=== PATIENT | male | born 1940 | race Caucasian/White ===

== ENCOUNTER 2017-09-25 10:20 | Emergency (ER) | payer OTHER ==
[~2017-09-25 10:20] MED LIST: ALLO300T2 PO; ATOR40TA69 PO; CARV6.2579 PO; FURO40TA7 PO; ISOS20TA7 PO; LISI10TA7 PO; PANT40TA25 PO; POTA10TA11 PO; TAMS-1 PO
[2017-09-25] MEDS ORDERED: ACETAMINOPHEN 325 MG TAB ONE (10:52)
[2017-09-25 11:14] LABS: BASOPHILS % (AUTO) 0.9 % (0.0-5.0); EOSINOPHILS % (AUTO) 0.1 % (0.0-8.0); HEMATOCRIT 44.7 % (42-54); MEAN CORPUSCULAR HEMOGLOBIN 32.7 pg (27.0-33.0); MEAN CORPUSCULAR HGB CONC 33.9 g/dL (32.0-36.0); MEAN CORPUSCULAR VOLUME 96.3 fL (79-99); PLATELET COUNT (AUTO) 144 K/uL (130-400); RED BLOOD CELL COUNT(AUTO) 4.64 MIL/uL (4.50-6.20); RED CELL DISTRIBUTION WIDTH 14.8 % (11.0-15.5); WHITE BLOOD COUNT (AUTO) 8.6 K/uL (4.8-10.8)
[2017-09-25 11:24] LABS: CREATININE 1.5 mg/dL (0.5-1.5)
[2017-09-25 11:25] LABS: POTASSIUM 2.9 mmol/L (3.5-5.1)
[2017-09-25 11:41] LABS: APPEARANCE,URINE Clear (CLEAR); BILIRUBIN,URINE Negative (NEGATIVE); COLOR,URINE Yellow (YELLOW); GLUCOSE, URINE (UA) Negative (NEGATIVE); KETONES,URINE Negative (NEGATIVE); LEUKOCYTE ESTERASE ,URINE Negative (NEGATIVE); NITRATE,URINE Negative (NEGATIVE); OCCULT BLOOD,URINE Negative (NEGATIVE); PROTEIN,URINE Negative (NEGATIVE)
[2017-09-25 11:52] LABS: B-TYPE NATRIURETIC PEPTIDE 254 pg/mL (0-100)
[2017-09-25] MEDS ORDERED: IPRATROPIUM/ALBUTEROL SULFATE 3 ML SOLUTION IH ONE (11:52)
[2017-09-25] MEDS ORDERED: POTASSIUM BICARB/CIT AC 25 MEQ TABLET.EFF ONE (12:10)
== END 2017-09-25 13:36 | disposition home or self-care (01) ==
LOC: EDH 10:20
DX: J09.X2 Influenza due to identified novel influenza A virus with other respiratory manifestations (principal); M54.5 Low back pain; I11.0 Hypertensive heart disease with heart failure; I50.9 Heart failure, unspecified; E78.5 Hyperlipidemia, unspecified
CPT/HCPCS: 36415; 71045; 80048; 81003; 83605; 83880; 84484; 85025; 93005; 94640

== ENCOUNTER 2019-09-30 13:57 | Emergency (ER) | payer MEDICARE, OTHER ==
[2019-09-30] MEDS ORDERED: ACETAMINOPHEN EXTRA STRENGTH 500 MG TABLET ONE (14:53)
== END 2019-09-30 16:28 | disposition home or self-care (01) ==
LOC: EDH 13:57
DX: S83.91XA Sprain of unspecified site of right knee, initial encounter (principal); S40.021A Contusion of right upper arm, initial encounter; I50.9 Heart failure, unspecified; E78.5 Hyperlipidemia, unspecified; I10 Essential (primary) hypertension; Z98.890 Other specified postprocedural states; Z87.891 Personal history of nicotine dependence; W18.39XA Other fall on same level, initial encounter; Y93.89 Activity, other specified; Y92.89 Other specified places as the place of occurrence of the external cause; Y99.8 Other external cause status
CPT/HCPCS: 73562

== ENCOUNTER → 2022-04-19 | Outpatient (CLI) | payer MEDICARE ==
[~2022-04-19] VITALS: Ht 160 cm; Wt 112.1 kg
[~2022-04-19] MED LIST changes: +ALLOPURINOL PO; +ASPI-1443 PO; +BUPIVACAINE/PF 0.5% 30ML VIAL INJ ONE; +CEFAZOLIN SODIUM 1 GM VIAL IVP ONE; -ISOS20TA7 PO; +ISOS20TA85 PO; +ISOSORBIDE PO; +LEVO5TAB13 PO; +LISI10TA24 PO; -LISI10TA7 PO; +LISI2.5T13 PO; +METO5TAB7 PO; +MONT-39 PO; -PANT40TA25 PO; +PANT40TA55 PO; +POTA-183 PO; +POTA-79 PO; -POTA10TA11 PO; +WARF4TAB72 PO
[2022-04-19 14:58] LABS: BASOPHILS % (AUTO) 0.7 % (0.0-5.0); EOSINOPHILS % (AUTO) 1.9 % (0.0-8.0); HEMATOCRIT 45.7 % (42-54); LYMPHOCYTES % (AUTO) 30.5 % (21.0-51.0); MEAN CORPUSCULAR HEMOGLOBIN 32.3 pg (27.0-33.0); MEAN CORPUSCULAR HGB CONC 33.3 g/dL (32.0-36.0); MONOCYTES % (AUTO) 9.5 % (3.0-13.0); PLATELET COUNT (AUTO) 196 K/uL (130-400); RED BLOOD CELL COUNT(AUTO) 4.71 MIL/uL (4.50-6.20); RED CELL DISTRIBUTION WIDTH 13.2 % (11.0-15.5); WHITE BLOOD COUNT (AUTO) 6.9 K/uL (4.8-10.8)
[2022-04-19 15:04] VITALS: BP 148/72
[2022-04-19 15:07] LABS: CREATININE 1.3 mg/dL (0.5-1.5); POTASSIUM 3.5 mmol/L (3.5-5.1)
[2022-04-19 15:10] LABS: INR 1.62 (0.85-1.15); PROTHROMBIN TIME 17.2 SEC (9.6-11.6)
[2022-04-19 15:11] LABS: PARTIAL THROMBOPLASTIN TIME 34.6 SEC (26.3-35.5)
[2022-04-22 06:56] LABS: INR 1.15 (0.85-1.15); PROTHROMBIN TIME 12.4 SEC (9.6-11.6)
[2022-04-22 06:58] LABS: PARTIAL THROMBOPLASTIN TIME 28.5 SEC (26.3-35.5)
== END | disposition home or self-care (01) ==
LOC: DAH 10:00 → EDSTATUS 14:00
PROVIDERS: ATTEND Surgery
DX: Z01.812 Encounter for preprocedural laboratory examination (principal); K80.13 Calculus of gallbladder with acute and chronic cholecystitis with obstruction; Z79.01 Long term (current) use of anticoagulants; Z20.822 Contact with and (suspected) exposure to COVID-19
CPT/HCPCS: 36415; 80048; 85025; 85610; 85730; 87426; 93005

== ENCOUNTER 2022-04-21 23:56 | Observation (INO) | payer MEDICARE ==
[~2022-04-21] VITALS: Ht 160 cm; Wt 117.0 kg
[~2022-04-21 23:56] MED LIST changes: -ALLO300T2 PO; -BUPIVACAINE/PF 0.5% 30ML VIAL INJ ONE; -CEFAZOLIN SODIUM 1 GM VIAL IVP ONE; -ISOS20TA85 PO; -LISI10TA24 PO; -PANT40TA55 PO; -POTA-183 PO
[2022-04-22] VITALS (25 sets, daily range): BP systolic 99–135; BP diastolic 50–79
[2022-04-22 00:41] LABS: BASOPHILS % (AUTO) 0.5 % (0.0-5.0); EOSINOPHILS % (AUTO) 1.3 % (0.0-8.0); MEAN CORPUSCULAR HEMOGLOBIN 32.6 pg (27.0-33.0); MEAN CORPUSCULAR HGB CONC 33.7 g/dL (32.0-36.0); MEAN CORPUSCULAR VOLUME 96.6 fL (79-99); MONOCYTES % (AUTO) 7.7 % (3.0-13.0); NEUTROPHILS % (AUTO) 67.5 % (40.0-77.0); PLATELET COUNT (AUTO) 205 K/uL (130-400); RED BLOOD CELL COUNT(AUTO) 4.45 MIL/uL (4.50-6.20); RED CELL DISTRIBUTION WIDTH 13.2 % (11.0-15.5); WHITE BLOOD COUNT (AUTO) 9.1 K/uL (4.8-10.8)
[2022-04-22 00:43] LABS: APPEARANCE,URINE CLEAR (CLEAR); BILIRUBIN,URINE NEGATIVE (NEGATIVE); COLOR,URINE YELLOW (YELLOW); GLUCOSE, URINE (UA) NEGATIVE (NEGATIVE); KETONES,URINE 5 mg/dL (NEGATIVE); LEUKOCYTE ESTERASE ,URINE TRACE (NEGATIVE); NITRATE,URINE NEGATIVE (NEGATIVE); OCCULT BLOOD,URINE TRACE-INTACT (NEGATIVE); PH,URINE 5.5 (5.0-8.0); PROTEIN,URINE NEGATIVE (NEGATIVE); UROBILINOGEN,URINE 0.2 mg/dL (0.2-1.0)
[2022-04-22 00:52] LABS: BACTERIA,URINE Rare /HPF (None Seen); MUCUS,URINE Rare LPF (None Seen); SQUAMOUS EPITHELIAL CELL,UR Rare /HPF (0-2)
[2022-04-22 00:55] LABS: CREATININE 1.4 mg/dL (0.5-1.5); POTASSIUM 3.1 mmol/L (3.5-5.1)
[2022-04-22 00:59] LABS: ALBUMIN 3.4 g/dL (3.5-5.0); TOTAL PROTEIN, SERUM 7.1 g/dL (6.0-8.3)
[2022-04-22 01:17] LABS: INR 1.09 (0.85-1.15); PROTHROMBIN TIME 11.8 SEC (9.6-11.6)
[2022-04-22 01:18] LABS: PARTIAL THROMBOPLASTIN TIME 30.5 SEC (26.3-35.5)
[2022-04-22] MEDS ORDERED: 0.9%NACL 1000ML 1,000 ML IV ONE (01:30)
[2022-04-22] MEDS ORDERED: KETOROLAC 15MG/ML VIAL (15MG/ML) IV ONE (01:30)
[2022-04-22] MEDS ORDERED: ONDANSETRON 4MG INJ IVP ONE (01:30)
[2022-04-22] MEDS ORDERED: MORPHINE 4 MG SYG IVP ONE (01:30)
[2022-04-22] MEDS ORDERED: ZOSYN 3.375GM +NS 50ML IV SCH (01:30)
[2022-04-22] MEDS ORDERED: LIDOCAINE HCL-MPF 1% 2ML VIAL IV PRN (02:00)
[2022-04-22] MEDS ORDERED: POTASSIUM CHLORIDE 20MEQ/100ML 100 ML IV PRN (02:00)
[2022-04-22] MEDS ORDERED: MORPHINE 2 MG SYG IV PRN (02:00)
[2022-04-22] MEDS ORDERED: MORPHINE 4 MG SYG IV PRN (02:00)
[2022-04-22] MEDS ORDERED: HYDRALAZINE 20MG/ML VIAL IV PRN (02:00)
[2022-04-22] MEDS ORDERED: ONDANSETRON 4MG INJ IV PRN (02:00)
[2022-04-22] MEDS ORDERED: KETOROLAC 15MG/ML VIAL (15MG/ML) IM PRN (02:30)
[2022-04-22] MEDS: 0.9%NACL 1000ML 1,000 ML IV SCH ×3 (02:53→22:00)
[2022-04-22] MEDS: ZOSYN 3.375GM+NS 50ML 50 ML IV SCH ×3 (05:14→20:34)
[2022-04-22] MEDS: INSULIN HUMULIN R 100 UNIT/ML 3ML SQ SCH ×4 (05:39→20:41)
[2022-04-22] MEDS ORDERED: PROPOFOL 10 MG/ML 20ML VIAL IV ONE (06:52)
[2022-04-22] MEDS ORDERED: DEXAMETHASONE SOD PHOSPHATE 10MG/ML 1ML VIAL ONE (06:52)
[2022-04-22] MEDS ORDERED: SUCCINYLCHOLINE CHLORIDE 20 MG/ML 10 ML VIAL ONE (06:52)
[2022-04-22] MEDS ORDERED: LIDOCAINE PF 100MG/5ML (2%) SYRINGE 5ML ONE (06:52)
[2022-04-22] MEDS ORDERED: ONDANSETRON 4MG INJ ONE (06:53)
[2022-04-22] MEDS ORDERED: MIDAZOLAM HCL 1 MG/ML 2ML VIAL ONE (06:53)
[2022-04-22] MEDS ORDERED: GLYCOPYRROLATE 1 MG/5 ML SYRINGE ONE (06:53)
[2022-04-22] MEDS ORDERED: NEOSTIGMINE 5MG/5ML SYR IV ONE (06:53)
[2022-04-22] MEDS ORDERED: FENTANYL CITRATE PF 50 MCG/1 ML 2ML VIAL ONE (06:54)
[2022-04-22] MEDS ORDERED: ROCURONIUM 10MG/1ML SYR 10 MG/ML ML ONE (06:54)
[2022-04-22] MEDS ORDERED: NOREPINEPHRINE BITARTRATE 1 MG/1 ML ML IV ONE (06:56)
[2022-04-22 08:17] LABS: CREATININE 1.6 mg/dL (0.5-1.5); POTASSIUM 3.1 mmol/L (3.5-5.1)
[2022-04-22] MEDS ORDERED: FAMOTIDINE 20MG VIAL IV SCH (09:00)
[2022-04-22] MEDS ORDERED: PHENYLEPHRINE HCL 10 MG/ML 1ML VIAL IV ONE ×4 (10:28→10:58)
[2022-04-22] MEDS ORDERED: FENTANYL CITRATE PF 50 MCG/1 ML 5ML AMP IV ONE (10:59)
[2022-04-22] MEDS ORDERED: IPRATROPIUM/ALBUTEROL SULFATE 3 ML SOLUTION IH ONE (11:29)
[2022-04-22] MEDS: FUROSEMIDE 40 MG TABLET PO SCH (20:35)
[2022-04-22] MEDS: CARVEDILOL 6.25 MG TABLET PO SCH (20:37)
[2022-04-23 00:16] VITALS: BP 126/59
[2022-04-23 04:15] VITALS: BP 152/83
[2022-04-23 04:18] VITALS: BP 137/74
[2022-04-23] MEDS: ZOSYN 3.375GM+NS 50ML 50 ML IV SCH ×2 (04:51→14:42)
[2022-04-23 05:48] LABS: HEMATOCRIT 38.2 % (42-54); MEAN CORPUSCULAR HEMOGLOBIN 32.6 pg (27.0-33.0); RED BLOOD CELL COUNT(AUTO) 3.86 MIL/uL (4.50-6.20); RED CELL DISTRIBUTION WIDTH 13.5 % (11.0-15.5); WHITE BLOOD COUNT (AUTO) 14.5 K/uL (4.8-10.8)
[2022-04-23 05:57] LABS: CREATININE 1.8 mg/dL (0.5-1.5); POTASSIUM 3.7 mmol/L (3.5-5.1)
[2022-04-23] MEDS: INSULIN HUMULIN R 100 UNIT/ML 3ML SQ SCH ×2 (07:30→11:30)
[2022-04-23 08:00] VITALS: BP 114/55
[2022-04-23] MEDS: 0.9%NACL 1000ML 1,000 ML IV SCH (08:00)
[2022-04-23] MEDS: CARVEDILOL 6.25 MG TABLET PO SCH (08:22)
[2022-04-23] MEDS: FUROSEMIDE 40 MG TABLET PO SCH (08:23)
[2022-04-23] MEDS ORDERED: MONTELUKAST SODIUM 10 MG TAB PO SCH (09:00)
[2022-04-23] MEDS ORDERED: ATORVASTATIN 40 MG TABLET PO SCH (09:00)
[2022-04-23] MEDS ORDERED: ISOSORBIDE MONO 30MG SR TAB PO SCH (09:00)
[2022-04-23] MEDS ORDERED: TAMSULOSIN HCL 0.4 MG CAP.ER.24H PO SCH (09:00)
[2022-04-23] MEDS ORDERED: FAMOTIDINE 20MG VIAL IV SCH (09:00)
[2022-04-23] MEDS ORDERED: CETIRIZINE HCL 5 MG TABLET PO SCH (09:00)
[2022-04-23] MEDS ORDERED: METOLAZONE 2.5 MG TABLET PO SCH (09:00)
[2022-04-23] MEDS ORDERED: LISINOPRIL 2.5 MG TABLET PO SCH (09:00)
[2022-04-23 10:41] LABS: ALBUMIN 2.8 g/dL (3.5-5.0); TOTAL PROTEIN, SERUM 6.3 g/dL (6.0-8.3)
[2022-04-23 12:00] VITALS: BP 118/50
== END 2022-04-23 16:30 | disposition home or self-care (01) ==
LOC: EDH 23:56 → INTOOBSV 04-22 01:47 → EDHIP 04-22 01:47 → 3BH 04-22 04:20
PROVIDERS: ADMIT Hospitalist; ATTEND Hospitalist
DX: K81.2 Acute cholecystitis with chronic cholecystitis (principal); Z20.822 Contact with and (suspected) exposure to COVID-19; E11.65 Type 2 diabetes mellitus with hyperglycemia; E87.6 Hypokalemia; K82.8 Other specified diseases of gallbladder; N39.0 Urinary tract infection, site not specified; E66.9 Obesity, unspecified; I11.0 Hypertensive heart disease with heart failure; I50.9 Heart failure, unspecified; E78.5 Hyperlipidemia, unspecified; G89.29 Other chronic pain; M54.9 Dorsalgia, unspecified; E78.00 Pure hypercholesterolemia, unspecified; I25.10 Atherosclerotic heart disease of native coronary artery without angina pectoris; Z87.891 Personal history of nicotine dependence; Z63.4 Disappearance and death of family member; Z95.0 Presence of cardiac pacemaker; Z95.1 Presence of aortocoronary bypass graft; Z68.41 Body mass index [BMI] 40.0-44.9, adult
CPT/HCPCS: 47562; 96376; 96372; 96361; 96365; 96366 ×2; 96375 ×2; 96368; 99285; 84484; 80048; 80053 ×2; 83880; 83690; 85025; 85610; 85730; 86850; 86900; 86901; 87088; 82948 ×8; 81001; 36415 ×2; 87635; 71045; 76705; 93005; 94640; 85027; G0378 ×7; J7030 ×2; C9803; J3010 ×2; J3490 ×4; J1100; J2710; J0330; J2001; J2250; J2704; J2405 ×2; J2270 ×2; J3480 ×2; J2543 ×6; J1885 ×2; J2370 ×3; C1769 ×3; A4649 ×2; A4223; A4657; A4222

== ENCOUNTER → 2022-07-08 | Outpatient (CLI) | payer MEDICARE | END | disposition home or self-care (01) | LOC: RAH 12:45 | PROVIDERS: ATTEND Physician Assistant Medical | DX: R93.89 Abnormal findings on diagnostic imaging of other specified body structures (principal); M25.552 Pain in left hip; M25.862 Other specified joint disorders, left knee; M25.861 Other specified joint disorders, right knee | CPT/HCPCS: 78306; A9503 ==

== ENCOUNTER → 2023-11-13 | Outpatient (CLI) | payer MEDICARE ==
[~2023-11-13] MED LIST changes: +POTA-364 PO; -POTA-79 PO
== END | disposition home or self-care (01) ==
LOC: RAH 08:21
PROVIDERS: ATTEND Internal Medicine Cardiovascular Disease
DX: I08.8 Other rheumatic multiple valve diseases (principal); I50.42 Chronic combined systolic (congestive) and diastolic (congestive) heart failure; I11.9 Hypertensive heart disease without heart failure; E66.9 Obesity, unspecified; E78.5 Hyperlipidemia, unspecified
CPT/HCPCS: 93306

== ENCOUNTER 2024-01-08 07:59 | Day surgery (SDC) | payer MEDICARE ==
[2024-01-06 08:37] LABS: BASOPHILS # (AUTO) 0.04 K/uL (0.00-0.20); BASOPHILS % (AUTO) 0.5 % (0.0-5.0); EOSINOPHILS # (AUTO) 0.11 K/uL (0.00-0.70); EOSINOPHILS % (AUTO) 1.4 % (0.0-8.0); HEMATOCRIT 31.9 % (42-54); IMMATURE GRANULOCYTE ABSOLUTE 0.09 K/uL (0-1); LYMPHOCYTES # (AUTO) 1.9 K/uL (1.0-4.8); LYMPHOCYTES % (AUTO) 24.4 % (21.0-51.0); MEAN CORPUSCULAR HEMOGLOBIN 31.4 pg (27.0-33.0); MEAN CORPUSCULAR HGB CONC 32.3 g/dL (32.0-36.0); MEAN CORPUSCULAR VOLUME 97.3 fL (79-99); MONOCYTES # (AUTO) 0.6 K/uL (0.1-1.0); MONOCYTES % (AUTO) 7.6 % (3.0-13.0); NEUTROPHILS # (AUTO) 5.1 K/uL (1.8-7.7); NEUTROPHILS % (AUTO) 64.9 % (40.0-77.0); PLATELET COUNT (AUTO) 280 K/uL (130-400); RED BLOOD CELL COUNT(AUTO) 3.28 MIL/uL (4.50-6.20); RED CELL DISTRIBUTION WIDTH 15.7 % (11.0-15.5); WHITE BLOOD COUNT (AUTO) 7.8 K/uL (4.8-10.8)
[2024-01-06 08:45] LABS: INR 1.32 (0.85-1.15); PROTHROMBIN TIME 15.3 SEC (9.6-11.6)
[2024-01-06 08:46] LABS: PARTIAL THROMBOPLASTIN TIME 36.6 SEC (26.3-35.5)
[2024-01-06 08:53] LABS: CREATININE 1.6 mg/dL (0.5-1.3); POTASSIUM 3.8 mmol/L (3.5-5.1)
[2024-01-06 09:18] VITALS: BP 110/57; PULSE 83; RESP 16
[2024-01-08] VITALS (9 sets, daily range): BP systolic 104–121; BP diastolic 40–64; PULSE 77–86; RESP 16
[~2024-01-08] VITALS: Ht 160 cm; Wt 87.8 kg
[~2024-01-08 07:59] MED LIST changes: +ALLO300T2 PO; -ALLOPURINOL PO; +ISOS30TA92 PO; -ISOSORBIDE PO; +NITR0.4T50 SL; +OXYC-762 PO; +POTA-193 PO; -POTA-364 PO; +TRAZ-187 PO
[2024-01-08] MEDS: 0.9%NACL 1000ML 1,000 ML IV ONE (08:47)
[2024-01-08] MEDS ORDERED: MEPERIDINE-PF 25 MG/ML SYG ONE ×3 (10:10→11:07)
[2024-01-08] MEDS ORDERED: LIDOCAINE HCL 1% MDV 50ML VIAL ONE (10:10)
[2024-01-08] MEDS ORDERED: BUPIVACAINE/PF 0.25% 30ML VIAL IJ ONE (10:11)
[2024-01-08] MEDS ORDERED: CEFAZOLIN SODIUM 1 GM VIAL ONE (10:11)
[2024-01-08] MEDS ORDERED: IOHEXOL-350 50ML VIAL IV ONE (10:11)
[2024-01-08] MEDS ORDERED: MIDAZOLAM HCL 1 MG/ML 2ML VIAL ONE ×3 (10:11→11:07)
[2024-01-08] MEDS ORDERED: CEFAZOLIN SODIUM 1 GM VIAL IVPB ONE (17:00)
[2024-02-23] MEDS ORDERED: TRAM50TA4 PO (08:55)
[2024-02-23] MEDS ORDERED: TIZA2CAP9 PO (08:55)
[2024-02-23] MEDS ORDERED: WARF-67 PO (08:55)
[2024-02-25] MEDS ORDERED: FURO40TA5 PO (09:16)
[2024-02-25] MEDS ORDERED: APIX5TAB PO (09:16)
[2024-02-25] MEDS ORDERED: POTA10CA95 PO (09:16)
== END 2024-01-08 17:15 | disposition home or self-care (01) ==
LOC: DAH 07:59
PROVIDERS: ATTEND Internal Medicine Cardiovascular Disease
DX: Z45.010 Encounter for checking and testing of cardiac pacemaker pulse generator [battery] (principal); I44.2 Atrioventricular block, complete; I48.0 Paroxysmal atrial fibrillation; I13.0 Hypertensive heart and chronic kidney disease with heart failure and stage 1 through stage 4 chronic kidney disease, or unspecified chronic kidney disease; N18.30 Chronic kidney disease, stage 3 unspecified; I50.42 Chronic combined systolic (congestive) and diastolic (congestive) heart failure; I25.10 Atherosclerotic heart disease of native coronary artery without angina pectoris; E78.5 Hyperlipidemia, unspecified; I25.2 Old myocardial infarction; Z79.82 Long term (current) use of aspirin; Z79.899 Other long term (current) drug therapy; Z98.890 Other specified postprocedural states; Z82.49 Family history of ischemic heart disease and other diseases of the circulatory system; Z98.49 Cataract extraction status, unspecified eye
CPT/HCPCS: 80048; 85025; 85610; 85730; 36415; 93005 ×2; 33208; 33233; 71045; C1769; C1785; C1898; C1894; J0690 ×2; J7030; J0665; J2250 ×3; J2175 ×3; J3490; Q9967; A4215; A4222; A4221; A4663; A4216; A4606; A4223 ×3; 33207; 99156; 99157

== ENCOUNTER 2024-09-07 10:57 | Emergency (ER) | payer MEDICARE ==
[~2024-09-07] VITALS: Ht 162.6 cm; Wt 86.2 kg
[2024-09-07 10:57] VITALS: BP 119/67; PULSE 81; RESP 20; TEMP 97
[~2024-09-07 10:57] MED LIST changes: +APIX2.5T PO; +ASPI-1197 PO; -ASPI-1443 PO; -FURO40TA7 PO; +LEVO-70 PO; -LISI2.5T13 PO; -METO5TAB7 PO; -MONT-39 PO; -OXYC-762 PO; -POTA-193 PO; +TIZA2CAP9 PO; -WARF4TAB72 PO
[2024-09-07 11:33] LABS: CREATININE 2.7 mg/dL (0.5-1.3); POTASSIUM 3.2 mmol/L (3.5-5.1)
--- NOTE | 2024-09-07 11:55 | HMCIMG ---
CHEST 1VW HISTORY: Shortness of breath COMPARISON: None FINDINGS: A frontal projection of the chest was obtained. Mild bilateral pulmonary infiltrates are seen may be related to mild pulmonary vascular congestion with possible superimposed pneumonitis. Poststernotomy changes are seen. The heart is enlarged. Degenerative changes of the thoracolumbar spine are present. Pacemaker is seen entering from the left. Aortic calcifications are seen. IMPRESSION: 1. Mild bilateral pulmonary infiltrates are seen may be related to mild pulmonary vascular congestion with possible superimposed pneumonitis.
[2024-09-07 13:25] LABS: LYMPHOCYTES % (MANUAL) 32 % (22-44); MAN.DIFF COMMENT-IMPRESSION MANUAL DIFFERENTIAL; MONOCYTES % (MANUAL) 4 % (2-9); PLATELET MORPHOLOGY COMMENT ADEQUATE; SEGMENTED NEUTROPHILS % 64 % (40-70); TOTAL CELLS COUNTED 100
[2024-09-07 13:27] LABS: HEMATOCRIT 24.6 % (42-54); MEAN CORPUSCULAR HEMOGLOBIN 31.2 pg (27.0-33.0); MEAN CORPUSCULAR HGB CONC 31.7 g/dL (32.0-36.0); MEAN CORPUSCULAR VOLUME 98.4 fL (79-99); PLATELET COUNT (AUTO) 121 K/uL (130-400); RED CELL DISTRIBUTION WIDTH 17.8 % (11.0-15.5); WHITE BLOOD COUNT (AUTO) 6.3 K/uL (4.8-10.8)
--- NOTE | 2024-09-07 13:49 | EKG ---
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
--- NOTE | 2024-09-07 14:31 | ERN ---
General Chief Complaint: Abnormal Labs Stated Complaint: ABNORMAL LABS Time Seen by MD: 11:02 Time Seen by Midlevel: 11:02 Source: patient History of Present Illness Initial Comments 84-year-old male presents to the ED with daughter for evaluation of abnormal labs. As per daughter, patient was seen by PCP on 08/30/2024 was called by PCP to bring patient in for anemia. Allergies: Coded Allergies: hydromorphone (Unverified Allergy, Unknown, 01/06/24) Home Meds Active Scripts Levofloxacin (Levofloxacin) 500 Mg Tablet, 250 MG PO DAILY for 14 Days, #14 TAB Prov:CATRINA GILLESPIE 04/28/24 Reported Medications Aspirin (Aspirin) 81 Mg Tab.chew, 81 MG PO HS, TAB.CHEW 04/26/24 Apixaban (Eliquis) 2.5 Mg Tablet, 2.5 MG PO BID, TAB 04/26/24 Tizanidine HCl (Tizanidine HCl) 2 Mg Capsule, 2 MG PO Q6HPRN PRN for PAIN LEVEL 1 TO 5, CAP 02/23/24 Isosorbide Mononitrate (Isosorbide Mononitrate ER) 30 Mg Tab.er.24h, 15 MG PO AM, TAB 01/06/24 Nitroglycerin (Nitroglycerin) 0.4 Mg Tab.subl, 0.4 MG SL AD PRN for CHEST PAIN, TAB.SL 01/06/24 Trazodone HCl (Trazodone HCl) 100 Mg Tablet, 100 MG PO HS, TAB 01/06/24 Allopurinol (Allopurinol) 300 Mg Tablet, 300 MG PO AM, TAB 01/06/24 Levocetirizine Dihydrochloride (Levocetirizine Dihydrochloride) 5 Mg Tablet, 5 MG PO HS, TAB 04/19/22 Tamsulosin HCl (Flomax) 0.4 Mg/Cap Cap.er.24h, 0.4 MG PO DAILY, CAPSULE. 10/21/16 Atorvastatin Calcium (LIPITOR) 40 Mg Tablet, 40 MG PO DAILY, TAB 01/25/15 Carvedilol (Coreg) 6.25 Mg Tablet, 6.25 MG PO HS, TAB 01/25/15 Past Medical History Past Medical History: Anemia, High Cholesterol, Hypertension, Prostatitis Medical History Other: BPH, POOR HIST[employer] Past Surgical History: CABG Surgical History Other: PACEMAKER Social History Social History: Negative, Lives with family ROS Dictation Constitutional: Negative for fever,chills, and weight loss Eyes: Negative for injury, pain,redness, and discharge ENT: Negative for injury,pain or swelling Cardiovascular: Negative for chest pain, palpitations, and edema Respiratory: Negative for shortness of breath, cough, and wheezing, Abdomen/GI: Negative for abdominal pain, nausea, vomiting, diarrhea, and constipation Back: Negative for injury and pain : Negative for injury, bleeding and discharge MS/Extremity: Negative for injury and deformity Skin: Negative for rash, and discoloration Neuro: Negative for headache, weakness, numbness, tingling, and seizure Psych: Negative for suicide ideation, homicidal ideation, and hallucinations Physical Exam Physical Exam Dictation General: awake, alert, NAD Head/Face: Normocephalic, atraumatic Eyes: PERRL, EOMI, vision at baseline ENT: oral cavity clear, TMs clear, no signs of infection Neck: Trachea midline, supple, no nuchal rigidity Cardiovascular: RRR, normal S1/S2, No MRGs, no JVD Respiratory: CTAB, no respiratory distress, No rales or wheezes Abdomen: Soft, non-tender, non-distended, normal bowel sounds, no guarding or rebound. Skin: Warm, dry, normal turgor, no rash MS/Extremity: Pulses equal, no cyanosis, neurovascular intact, FROM Neuro: COAx4, GCS 15, strength 5/5, CN 2-12 intact, normal cerebellar exam, normal gait, Psych: Normal behavior, mood, and affect normal Results Laboratory and Microbiology Lab and Micro Result Laboratory Tests Test 09/07/24 11:10 White Blood Count 6.3 K/uL (4.8-10.8) Red Blood Count 2.50 MIL/uL (4.50-6.20) L Hemoglobin 7.8 g/dL (14.0-18.0) L Hematocrit 24.6 % (42-54) L Mean Corpuscular Volume 98.4 fL (79-99) Mean Corpuscular Hemoglobin 31.2 pg (27.0-33.0) Mean Corpuscular Hemoglobin Concent 31.7 g/dL (32.0-36.0) L Red Cell Distribution Width 17.8 % (11.0-15.5) H Platelet Count 121 K/uL (130-400) L Mean Platelet Volume 10.0 fL (7.5-10.5) Segmented Neutrophils % 64 % (40-70) Lymphocytes % (Manual) 32 % (22-44) Monocytes % (Manual) 4 % (2-9) Nucleated Red Blood Cells 0.0 % (0.0-0.19) Differential Comment MANUAL DIFFERENTIAL White Cell Morphology Comment Platelet Morphology Comment ADEQUATE Red Blood Cell Morphology ANISO 1+ Sodium Level 144 mmol/L (136-145) Potassium Level 3.2 mmol/L (3.5-5.1) L Chloride Level 105 mmol/L (101-111) Carbon Dioxide Level 26 mmol/L (21-32) Blood Urea Nitrogen 96 mg/dL (7-18) *H Creatinine 2.7 mg/dL (0.5-1.3) H Glomerular Filtration Rate Calc 23 mL/min (>90) Random Glucose 105 mg/dL (70-105) Total Calcium 8.0 mg/dL (8.5-10.1) L Magnesium Level 1.10 mg/dL (1.80-2.40) L Troponin I High Sensitivity 70 ng/L (4-75) Labs Reviewed?: Yes MDM MDM: 84-year-old male presenting to the emergency department after his primary care doctor contacted him about an abnormal hemoglobin level. Patient's hemoglobin was drawn on August 30, 2024 and was 7.8 he was called today to report to the ER for an hemorrhoid running low hemoglobin. Patient does report having history of anemia but states he usually in the 9-10 area. He specifically denies any chest pains today his repeat hemoglobin today was 7.8. BUN and creatinine are elevated which is consistent with his previous history. He does have a history of chronic renal insufficiency. His potassium is slightly low today however given his elevated creatinine his potassium will be replaced. Labs daughter who has power of tax associate attorney over him and both of them would like to sign out against medical advice. Risks were discussed with both the patient and daughter and they understand. Patient signed out against medical advice. Differential diagnosis: Anemia, dehydration, electrolyte abnormality Rationale: Tests considered and ordered secondary to shared decision making include: Previous outside records reviewed: Old ER visits. Risk of complication and/or morbidity or mortality of patient management: None Medications-Per medication reconciliation Need for hospitalization: Patient does meet criteria for hospitalization. Need for emergency major/minor surgery: No There are no social concerns with this patient. Prescription drug management Prescriptions will include symptomatic care Patient's prior external medical records from other ER visits were reviewed by me as indicated. Prior testing and results from previous visits were reviewed. Prior tests were taken into account with medical decision making and resource utilization, independent historian/historians were used to obtain complete medical history. I independently interpreted the test that were performed, results were reviewed by me and considered findings on radiology if ordered. Medical management and examination interpretation discussions were had by me with other qualified healthcare professionals as indicated for the patient's care. ED Course Orders Procedure Category Date Status Time Cbc W Manual Diff LAB 09/07/24 Complete 11:01 Type And Screen BBK 09/07/24 Complete 11:01 Basic Metabolic Panel LAB 09/07/24 Complete 11:02 12 Lead Ekg Tracing- EKG 09/07/24 Complete Technical 11:02 Chest 1vw RAD 09/07/24 Resulted 11:37 Troponin I High LAB 09/07/24 Complete Sensitivity 11:37 Magnesium LAB 09/07/24 Complete 11:37 Vital Signs Date Time Temp Pulse Resp B/P (MAP) Pulse Ox O2 Delivery O2 Flow Rate FiO2 09/07/24 10:57 97.0 81 20 119/67 100 Room Air [address] [address] IMAGING REPORT Signed PATIENT: KASSANDRA FELIZ MR#: [id number] : 1940 SEX: M AGE: 84 LOCATION: [facility] ORDER 1138 STATUS: REG ER REPORT#: [id number] SERVICE 1137 REASON: sob ORDERING PHYSICIAN: JOSE LAWSON PROCEDURE: CXR1VW - CHEST 1VW CHEST 1VW HISTORY: Shortness of breath COMPARISON: None FINDINGS: A frontal projection of the chest was obtained. Mild bilateral pulmonary infiltrates are seen may be related to mild pulmonary vascular congestion with possible superimposed pneumonitis. Poststernotomy changes are seen. The heart is enlarged. Degenerative changes of the thoracolumbar spine are present. Pacemaker is seen entering from the left. Aortic calcifications are seen. IMPRESSION: 1. Mild bilateral pulmonary infiltrates are seen may be related to mild pulmonary vascular congestion with possible superimposed pneumonitis. DICTATED BY: CARMELITA GARCIA MD DATE: 09/07/24 115 ELECTRONICALLY SIGNED BY: CARMELITA GARCIA MD DATE: 09/07/24 1155 DX & DISP Disposition: AMA (2:53 pm signed out AMA) Departure Impression: Primary Impression: Anemia Additional Impressions: Chronic renal insufficiency, Hypokalemia Condition: Stable Referrals: TOMI DELUNA (PCP) I have reviewed, & agreed with my scribe's, documentation. (Entered by Neal Lynn, acting as a scribe for MALI Lawson) I have reviewed the case, and I agree with, Diagnosis and Plan I performed the substantive portion of the visit. I have reviewed and personally made and approve the management plan that is documented in the note by myself or the LEE. I acknowledge for responsibility for the patient's management plan. I personally scribed for JOSE LAWSON ([facility]) on 09/07/24 at 14:31. Electronically submitted by Neal Lynn ([email or web address]). JOSE LAWSON Sep 07, 2024 14:31
== END 2024-09-07 14:58 | disposition left against medical advice (07) ==
LOC: EDH 10:57
DX: D64.9 Anemia, unspecified (principal); I12.9 Hypertensive chronic kidney disease with stage 1 through stage 4 chronic kidney disease, or unspecified chronic kidney disease; E11.22 Type 2 diabetes mellitus with diabetic chronic kidney disease; N18.9 Chronic kidney disease, unspecified; E87.6 Hypokalemia; E78.00 Pure hypercholesterolemia, unspecified; Z79.01 Long term (current) use of anticoagulants; Z79.82 Long term (current) use of aspirin; Z79.899 Other long term (current) drug therapy; Z88.5 Allergy status to narcotic agent; Z95.0 Presence of cardiac pacemaker; Z95.1 Presence of aortocoronary bypass graft
CPT/HCPCS: 36415; 71045; 80048; 83735; 84484; 85025; 86850; 86900; 86901; 93005; 99285